=== PATIENT | female | born 1975 | race Caucasian/White ===

== ENCOUNTER 2017-09-11 12:25 | Outpatient (CLI) | payer BC ==
[~2017-09-11] VITALS: Ht 157.5 cm; Wt 97.3 kg
[2017-09-11] MEDS ORDERED: ACETAMINOPHEN 325 MG TABLET ONE (13:07)
[2017-09-11 13:19] LABS: BASOPHILS # (AUTO) 0.01 x10^3/uL (0-0.1); BASOPHILS % (AUTO) 0 % (0-1); EOSINOPHILS % (AUTO) 0 % (1-7); LYMPHOCYTES # (AUTO) 1.22 x10^3/uL (1-3.4); LYMPHOCYTES % (AUTO) 11 % (22-44); MD NO; MEAN CORPUSCULAR HGB CONC 33.1 g/dL (32.4-35.8); MEAN CORPUSCULAR VOLUME 78.4 fL (80-100); MEAN PLATELET VOLUME 9.8 fL (7.4-10.4); MONOCYTES # (AUTO) 0.51 x10^3/uL (0.2-0.8); MONOCYTES % (AUTO) 5 % (2-9); NEUTROPHILS # (AUTO) 9.42 x10^3/uL (1.8-6.8); NEUTROPHILS % (AUTO) 85 % (42-75); PLATELET COUNT 187 x10^3/uL (130-400); RED BLOOD COUNT 4.46 x10^6/uL (3.82-5.3); RED CELL DISTRIBUTION WIDTH 14.9 % (9.6-15.2)
[2017-09-11 13:20] LABS: CREATININE,URINE RANDOM 48.6 mg/dL
[2017-09-11 13:24] LABS: MICROSCOPIC NOT IND
[2017-09-11 13:29] LABS: ALBUMIN 2.3 g/dL (3.4-5.0); CHLORIDE 110 mmol/L (98-107)
[2017-09-11] MEDS ORDERED: ACETAMINOPHEN 325 MG TABLET PO ONE (13:30)
[2017-09-11 13:32] LABS: ALANINE AMINOTRANSFERASE 11 U/L (12-78); ANION GAP 10 mmol/L (5-15)
[2017-09-11 13:33] LABS: ALKALINE PHOSPHATASE 116 U/L (45-117); BILIRUBIN,TOTAL 0.4 mg/dL (0.2-1.0); CREATININE 0.45 mg/dL (0.55-1.02); TOTAL PROTEIN 6.2 g/dL (6.4-8.2)
== END 2017-09-11 15:11 | disposition home or self-care (01) ==
LOC: LDOP 12:25
PROVIDERS: ATTEND Obstetrics & Gynecology
DX: O13.3 Gestational [pregnancy-induced] hypertension without significant proteinuria, third trimester (principal); Z3A.38 38 weeks gestation of pregnancy
CPT/HCPCS: 36415; 59025; 80053; 81003; 82570; 84156; 84550; 85025; 87086; 99201; G0463

== ENCOUNTER 2017-09-14 20:16 | Inpatient (IN) | payer BC ==
[~2017-09-14] VITALS: Ht 157.5 cm; Wt 96.8 kg
[2017-09-14 20:26] VITALS: BP 180/106
[2017-09-14] MEDS ORDERED: OXYTOCIN 30U/ 0.9% NaCL 500ML 500 ML IV ONE (21:16)
[2017-09-14] MEDS: D5%-LACTATED RINGERS 1,000 ML IV SCH (21:16)
[2017-09-14] MEDS ORDERED: METOCLOPRAMIDE 5 MG/ML, 2ML IVPush PRN (21:30)
[2017-09-14] MEDS ORDERED: ONDANSETRON 2MG/ML, 2ML IVPush PRN (21:30)
[2017-09-14] MEDS ORDERED: CALCIUM CARBONATE 500 MG TAB.CHEW PO PRN (21:30)
[2017-09-14] MEDS ORDERED: TERBUTALINE 1 MG/ML, 1ML IVPush PRN (21:30)
[2017-09-14] MEDS ORDERED: SODIUM CITRATE/CITRIC ACID 30 ML UDC PO PRN (21:30)
[2017-09-14] MEDS ORDERED: FENTANYL PF 100 MCG/2ML IV PRN (21:30)
[2017-09-14] MEDS ORDERED: FENTANYL PF 100 MCG/2ML ONE (21:36)
[2017-09-14] MEDS ORDERED: NEWBORN KIT ONE (21:37)
[2017-09-14] MEDS ORDERED: LIDOCAINE 1%, 20ML ONE (21:38)
[2017-09-14] MEDS ORDERED: OXYTOCIN 30U/ 0.9% NaCL 500ML 500 ML ONE (21:38)
[2017-09-14] MEDS ORDERED: MISOPROSTOL 200 MCG TABLET ONE (21:38)
[2017-09-14 21:39] LABS: BASOPHILS # (AUTO) 0.01 x10^3/uL (0-0.1); BASOPHILS % (AUTO) 0 % (0-1); EOSINOPHILS % (AUTO) 0 % (1-7); LYMPHOCYTES # (AUTO) 1.34 x10^3/uL (1-3.4); LYMPHOCYTES % (AUTO) 9 % (22-44); MD NO; MEAN CORPUSCULAR HEMOGLOBIN 26.1 pg (27.0-34.8); MEAN CORPUSCULAR HGB CONC 33.4 g/dL (32.4-35.8); MEAN CORPUSCULAR VOLUME 78.1 fL (80-100); MEAN PLATELET VOLUME 9.9 fL (7.4-10.4); MONOCYTES # (AUTO) 0.99 x10^3/uL (0.2-0.8); MONOCYTES % (AUTO) 7 % (2-9); NEUTROPHILS % (AUTO) 85 % (42-75); PLATELET COUNT 205 x10^3/uL (130-400); RED BLOOD COUNT 4.68 x10^6/uL (3.82-5.3)
[2017-09-14] MEDS: FENTANYL PF 100 MCG/2ML IVPush PRN (21:42)
[2017-09-14 21:48] LABS: ALANINE AMINOTRANSFERASE 11 U/L (12-78); ALBUMIN 2.3 g/dL (3.4-5.0); ANION GAP 9 mmol/L (5-15); CALCIUM 8.7 mg/dL (8.5-10.1); CHLORIDE 110 mmol/L (98-107); CREATININE 0.57 mg/dL (0.55-1.02)
[2017-09-14 21:50] LABS: ALKALINE PHOSPHATASE 123 U/L (45-117); BILIRUBIN, DIRECT < 0.1 mg/dL (0.1-0.2); BILIRUBIN,TOTAL 0.2 mg/dL (0.2-1.0); TOTAL PROTEIN 6.7 g/dL (6.4-8.2)
[2017-09-14] MEDS ORDERED: LABETALOL 5MG/ML, 20ML ONE (21:52)
[2017-09-14] MEDS ORDERED: LABETALOL 5MG/ML, 20ML IVPush ONE (22:00)
[2017-09-14] MEDS: PLEASE ENTER HEIGHT AND WEIGHT MC SCH ×3 (22:00)
[2017-09-14] MEDS ORDERED: hydrALAzine 20 MG/ML, 1ML ONE (22:19)
[2017-09-14] MEDS ORDERED: hydrALAzine 20 MG/ML, 1ML IV ONE (22:30)
[2017-09-14] MEDS ORDERED: FENTANYL/BUPIV./NS/PF 250 ML EPIDCONT ONE (22:44)
[2017-09-14] MEDS ORDERED: BUPIVACAINE/PF 0.25% ONE (22:44)
[2017-09-14] MEDS: LACTATED RINGERS 1,000 ML IV SCH ×2 (22:56→22:57)
[2017-09-14 23:58] LABS: MICROSCOPIC INDICATED
[2017-09-15] MEDS ORDERED: OXYTOCIN 30U/ 0.9% NaCL 500ML 500 ML IV PRN (04:02)
[2017-09-15] MEDS: D5%-LACTATED RINGERS 1,000 ML IV SCH (05:16)
[2017-09-15] MEDS ORDERED: SODIUM CITRATE/CITRIC ACID 30 ML UDC ONE (05:24)
[2017-09-15] MEDS ORDERED: OXYTOCIN 30U/ 0.9% NaCL 500ML 500 ML IV SCH (05:24)
[2017-09-15] MEDS ORDERED: LACTATED RINGERS 1,000 ML IV SCH ×4 (05:24→06:56)
[2017-09-15] MEDS ORDERED: LACTATED RINGERS 1,000 ML IVBOLUS ONE (05:30)
[2017-09-15] MEDS ORDERED: AZITHROMYCIN 500 MG in SODIUM CHLORIDE 0.9% 250 ML IV ONE (05:30)
[2017-09-15] MEDS ORDERED: METOCLOPRAMIDE 5 MG/ML, 2ML IV ONE (05:30)
[2017-09-15] MEDS ORDERED: SODIUM CITRATE/CITRIC ACID 30 ML UDC PO ONE (05:30)
[2017-09-15] MEDS ORDERED: LIDOCAINE-MPF 2% ,5ML ONE (05:51)
[2017-09-15] MEDS ORDERED: EPHEDRINE 50 MG/ML, 1ML ONE (05:54)
[2017-09-15] MEDS ORDERED: ONDANSETRON 2MG/ML, 2ML ONE (05:54)
[2017-09-15] MEDS: PLEASE ENTER HEIGHT AND WEIGHT MC SCH ×3 (06:00)
[2017-09-15] MEDS: LACTATED RINGERS 1,000 ML IV SCH ×3 (06:54→21:55)
[2017-09-15] MEDS ORDERED: FENTANYL/BUPIV./NS/PF 250 ML EPIDCONT SCH (06:56)
[2017-09-15] MEDS ORDERED: ONDANSETRON 2MG/ML, 2ML IV PRN (07:00)
[2017-09-15] MEDS ORDERED: LACTATED RINGERS 1,000 ML IVBOLUS PRN (07:00)
[2017-09-15] MEDS ORDERED: MISOPROSTOL 200 MCG TABLET PR PRN (07:00)
[2017-09-15] MEDS ORDERED: CARBOPROST TROMETHAMINE 250 MCG/ML, 1ML IM PRN (07:00)
[2017-09-15] MEDS ORDERED: PROMETHAZINE 25 MG/ML, 1ML IV PRN (07:00)
[2017-09-15] MEDS ORDERED: LABETALOL 5MG/ML, 20ML IV PRN (07:00)
[2017-09-15] MEDS ORDERED: SIMETHICONE 80 MG CHEW TAB PO PRN (07:00)
[2017-09-15] MEDS ORDERED: ACETAMINOPHEN 325 MG TABLET PO PRN (07:00)
[2017-09-15] MEDS ORDERED: FENTANYL PF 100 MCG/2ML IV PRN (07:00)
[2017-09-15] MEDS ORDERED: DIPHENHYDRAMINE 50 MG/ML, 1ML IVPush PRN (07:00)
[2017-09-15] MEDS ORDERED: MEPERIDINE/PF 25MG/0.5ML IVPush PRN (07:00)
[2017-09-15] MEDS ORDERED: hydrALAzine 20 MG/ML, 1ML IV PRN (07:00)
[2017-09-15] MEDS ORDERED: CALCIUM CARBONATE 500 MG TAB.CHEW PO PRN (07:00)
[2017-09-15] MEDS ORDERED: EPHEDRINE 50 MG/ML, 1ML IVPush PRN (07:00)
[2017-09-15] MEDS ORDERED: OXYcodone 5 MG/5 ML ORAL.SOL UDC PO PRN (07:00)
[2017-09-15] MEDS ORDERED: morphine SULFATE 10 MG/ML, 1ML IV PRN (07:00)
[2017-09-15] MEDS ORDERED: morphine SULFATE 10 MG/ML, 1ML IVPush PRN ×2 (07:00)
[2017-09-15] MEDS ORDERED: ONDANSETRON 2MG/ML, 2ML IVPush PRN ×2 (07:00)
[2017-09-15] MEDS: OXYTOCIN 30U/ 0.9% NaCL 500ML 500 ML IV SCH ×3 (08:14→21:56)
[2017-09-15] MEDS ORDERED: FENTANYL PF 100 MCG/2ML ONE (08:55)
[2017-09-15] MEDS: FENTANYL PF 100 MCG/2ML IVPush PRN (08:58)
[2017-09-15] MEDS: PRENATAL VIT/IRON/FA 1 EACH TABLET PO SCH (09:00)
[2017-09-15 09:25] VITALS: BP 148/92
[2017-09-15] MEDS: OXYcodone/APAP 5/325MG TABLET PO PRN ×4 (10:16→23:58)
[2017-09-15 12:00] VITALS: BP 148/88
[2017-09-15 14:21] LABS: MEAN CORPUSCULAR HEMOGLOBIN 25.8 pg (27.0-34.8); MEAN CORPUSCULAR VOLUME 78.3 fL (80-100); MEAN PLATELET VOLUME 9.2 fL (7.4-10.4); PLATELET COUNT 150 x10^3/uL (130-400); RED CELL DISTRIBUTION WIDTH 15.3 % (9.6-15.2)
[2017-09-15 14:26] LABS: MD YES
[2017-09-15 15:28] LABS: <PLATELET ESTIMATE> ADEQUATE; <PLT MORPHOLOGY> NORMAL PLT MORPH; <RBC MORPHOLOGY> NORMAL; BAND#(MANUAL) 0.37 x10^3/uL; BANDS%(MANUAL) 2 % (0-7); LYMPH#(MANUAL) 0.92 x10^3/uL (1-3.4); LYMPHS% (MANUAL) 5 % (22-44); MONOS#(MANUAL) 0.92 x10^3/uL (0.3-2.7); MONOS% (MANUAL) 5 % (2-9); REACTIVE LYMPHS # (MANUAL) 0.37 x10^3/uL (0-0); REACTIVE LYMPHS % (MANUAL) 2 % (0-0); SEG#(MANUAL) 15.74 x10^3/uL (1.8-6.8); SEGS% (MANUAL) 86 % (42-75)
[2017-09-15 16:00] VITALS: BP 148/88
[2017-09-15] MEDS: IBUPROFEN 600 MG TABLET PO PRN (19:41)
[2017-09-15 20:00] VITALS: BP 151/89
[2017-09-16] VITALS: BP 142/90
[2017-09-16] MEDS: IBUPROFEN 600 MG TABLET PO PRN ×3 (04:03→20:22)
[2017-09-16] MEDS: OXYcodone/APAP 5/325MG TABLET PO PRN ×3 (04:03→20:22)
[2017-09-16 04:04] VITALS: BP 142/83
[2017-09-16 07:26] VITALS: BP 139/91
[2017-09-16] MEDS ORDERED: OXYcodone IR 5MG TABLET PO PRN ×2 (07:30)
[2017-09-16] MEDS: DOCUSATE 100 MG CAPSULE PO PRN ×2 (09:50→20:22)
[2017-09-16] MEDS: PRENATAL VIT/IRON/FA 1 EACH TABLET PO SCH (09:50)
[2017-09-16 16:38] VITALS: BP 146/89
[2017-09-16 20:00] VITALS: BP 137/90
[2017-09-16] MEDS: LACTATED RINGERS 1,000 ML IV SCH (22:54)
[2017-09-16] MEDS: OXYTOCIN 30U/ 0.9% NaCL 500ML 500 ML IV SCH (22:54)
[2017-09-17 02:45] VITALS: BP 164/101
[2017-09-17] MEDS ORDERED: LABETALOL 100 MG TABLET ONE (03:03)
[2017-09-17] MEDS ORDERED: LABETALOL 100 MG TABLET PO ONE (03:05)
[2017-09-17] MEDS ORDERED: ONDANSETRON ODT 4 MG ONE (03:15)
[2017-09-17] MEDS ORDERED: ONDANSETRON ODT 4 MG PO PRN (03:15)
[2017-09-17] MEDS: IBUPROFEN 600 MG TABLET PO PRN ×3 (03:32→20:42)
[2017-09-17 04:30] VITALS: BP 125/78
[2017-09-17 07:28] VITALS: BP 143/93
[2017-09-17] MEDS ORDERED: LABETALOL 100 MG TABLET PO SCH (08:00)
[2017-09-17] MEDS: LACTATED RINGERS 1,000 ML IV SCH ×2 (08:58→18:14)
[2017-09-17] MEDS: OXYTOCIN 30U/ 0.9% NaCL 500ML 500 ML IV SCH ×2 (08:59→18:14)
[2017-09-17] MEDS: OXYcodone/APAP 5/325MG TABLET PO PRN ×3 (09:28→18:13)
[2017-09-17] MEDS: PRENATAL VIT/IRON/FA 1 EACH TABLET PO SCH (09:28)
[2017-09-17] MEDS: DOCUSATE 100 MG CAPSULE PO PRN ×2 (09:28→20:42)
[2017-09-17 12:31] VITALS: BP 138/87
[2017-09-17 15:57] VITALS: BP 127/85
[2017-09-17 20:20] VITALS: BP 148/90
[2017-09-18] VITALS: BP 152/96
[2017-09-18] MEDS: OXYcodone/APAP 5/325MG TABLET PO PRN ×3 (04:08→13:24)
[2017-09-18] MEDS: IBUPROFEN 600 MG TABLET PO PRN ×2 (04:08→11:22)
[2017-09-18] MEDS: LACTATED RINGERS 1,000 ML IV SCH (04:54)
[2017-09-18] MEDS: OXYTOCIN 30U/ 0.9% NaCL 500ML 500 ML IV SCH (04:54)
[2017-09-18 06:10] VITALS: BP 152/91
[2017-09-18 07:15] VITALS: BP 118/68
[2017-09-18] MEDS: DOCUSATE 100 MG CAPSULE PO PRN (08:08)
[2017-09-18] MEDS: PRENATAL VIT/IRON/FA 1 EACH TABLET PO SCH (08:08)
[2017-09-18 08:42] VITALS: BP 148/89
[2017-09-18 12:40] VITALS: BP 157/78
[2017-09-18] MEDS ORDERED: OXYC-302 PO (13:48)
[2017-09-18] MEDS ORDERED: NIFE30TA2 PO (13:49)
[2017-09-18] MEDS ORDERED: IBUP-1222 PO (13:49)
[2017-09-18] MEDS ORDERED: SENN-1 PO (13:50)
[2017-09-18] MEDS ORDERED: PREN1TAB28 PO (13:50)
== END 2017-09-18 15:10 | disposition home or self-care (01) | DRG 766 ==
LOC: LDOP 20:16 → LDIP 21:31 → 2NW 09-15 09:05
PROVIDERS: ADMIT Obstetrics & Gynecology; ATTEND Obstetrics & Gynecology
PROC: 10D00Z1 Extraction of Products of Conception, Low, Open Approach (ICD-10-PCS; principal; 2017-09-15)
DX: O34.13 Maternal care for benign tumor of corpus uteri, third trimester (principal); D25.2 Subserosal leiomyoma of uterus; Z37.0 Single live birth; O66.41 Failed attempted vaginal birth after previous cesarean delivery; O62.2 Other uterine inertia; Z3A.38 38 weeks gestation of pregnancy; O34.211 Maternal care for low transverse scar from previous cesarean delivery
CPT/HCPCS: 36415; 80053; 81001; 82248; 84550; 85025; 86850; 86900; 89060; J0456; J2405; J3010; Q0162; J0360; J2590; J2765; J7050; J7120; Q0114